=== PATIENT | female | born 1995 | race African-American/Black ===

== ENCOUNTER 2018-09-11 16:08 | Observation (INO) | payer MEDICARE ==
[~2018-09-11] VITALS: Ht 154.9 cm; Wt 59.1 kg
[2018-09-11 17:03] LABS: ALKALINE PHOSPHATASE 94 U/L (46-116); AMYLASE - SERUM 74 U/L (25-115); BILIRUBIN - TOTAL 1.19 mg/dL (0.2-1.3); CALC OSMOLALITY 280 mosm/kg (275-300); CALCIUM 8.7 mg/dL (8.5-10.1); CARBON DIOXIDE 26.1 mmol/L (21.0-32.0); CHLORIDE - SERUM 105 mmol/L (98-107); CREATININE - SERUM 0.9 mg/dL (0.6-1.3); GLUCOSE 141 mg/dL (74-106); LIPASE 59 U/L (73-393); POTASSIUM - SERUM 3.9 mmol/L (3.5-5.1); PROTEIN - SERUM 7.5 g/dL (6.4-8.2); SODIUM 141 mmol/L (136-145); TROPONIN-I < 0.017 ng/mL (0.000-0.060); UREA NITROGEN 7 mg/dL (7-18); eGFR NON AFRICAN AMERICAN 84 mL/min (90-120)
[2018-09-11 17:25] LABS: ALT (SGPT) < 10 U/L (10-68)
[2018-09-11 18:01] LABS: BASOPHILS 0.1 % (0-2); EOSINOPHILS 0.1 % (0-7); HEMATOCRIT 39.2 % (36.0-48.0); HEMOGLOBIN 13.1 g/dL (12-16); IMMATURE GRANULOCYTES 0.2 % (0-5); LYMPHOCYTES 9.7 % (15-50); MCH 30.2 pg (26.0-34.0); MCHC 33.4 g/dL (31.0-37.0); MCV 90.3 fL (80.0-100.0); MEAN PLATELET VOLUME 10.5 fL (7.4-10.4); MONOCYTES 2.6 % (2-11); NEUTROPHILS 87.3 % (40-80); PLATELET COUNT 259 10x3/uL (130-400); RBC 4.34 10x6/uL (4.00-5.40); RDW 12.3 % (11.5-14.5); WBC 12.7 10x3/uL (4.8-10.8)
--- NOTE | 2018-09-11 18:39 | NUR ---
I have reviewed this patient and I concur with the Shift Assessment completed by the Licensed Practical Nurse today this shift.
--- NOTE | 2018-09-11 19:00 | NUR ---
REPORT RECEIVED FROM ER NURSE. PATIENT WILL COME TO THE FLOOR POST-OP. HAVING LAP APPENDECTOMY BY DR. ABIMBOLA CONTI.
--- NOTE | 2018-09-11 19:00 | NUR ---
HAND-OFF REPORT GIVEN TO ED NURSE CARMITA NORMAN. PT WILL GO TO ROOM 2208 FOLLOWING SURGERY. REPORT CALLED TO BASILIO FARR NURSE AT THIS TIME.
[2018-09-12 02:24] VITALS: BP 113/61; Ht 154.9 cm; Wt 59.1 kg
[2018-09-12 04:37] VITALS: BP 115/61
--- NOTE | 2018-09-12 07:45 | NUR ---
PATIENT LAYING IN BED. C/O PAIN. JUST HAD ORAL PAIN MED, WILL GIE A CHANCE TO WORK. FAMILY AT BEDSIDE. ALL NEEDS MET AT THIS TIME.
--- NOTE | 2018-09-12 07:54 | NUR ---
I have reviewed this patient and I concur with the Shift Assessment completed by the Licensed Practical Nurse today this shift.
[2018-09-12] MEDS ORDERED: BACTRIM 400/80 MG TA PO (08:12)
[2018-09-12] MEDS ORDERED: NORCO-10 PO (08:12)
--- NOTE | 2018-09-12 08:13 | OP ---
PATIENT NAME: CHAD LERMA MEDICAL RECORD: [id number] :96 LOCATION:[id number] ADMISSION DATE:09/11/18 SURGEON: THANH DAILY MD DATE OF OPERATION: 09/11/2018 PREOPERATIVE DIAGNOSIS: Acute appendicitis with localized peritonitis. POSTOPERATIVE DIAGNOSIS: Acute appendicitis with localized peritonitis. PROCEDURE: Laparoscopic appendectomy. SURGEON: Thanh Daily MD REPORT OF PROCEDURE: The patient's abdomen was prepped and draped in sterile fashion. A cutdown was made on the superior aspect of the umbilicus. Electrocautery was used to dissect through the subcutaneous tissues to the fascia. This fascia was elevated and sutures were placed bilaterally. The fascia was then incised with a 15-blade and I bluntly entered the peritoneal cavity. A 12-mm Maya port was inserted and the abdomen was insufflated. Under direct visualization, a 5-mm trocar was placed in the left lower quadrant and another was placed in the suprapubic region. We could immediately see a very firm inflamed appendix projecting out of the cecum in the right lower quadrant towards the pelvis. There was no sign of any gangrene or perforation. The base of the appendix was significantly inflamed. The appendix itself was adherent to the inferior aspect and posterior aspect of the abdominal cavity. Using sharp dissection and electrocautery, we were able to dissect the peritoneal attachments until we were able to elevate the base of the cecum and the appendix. The mesoappendix was penetrated and using a 45 white load Endo-ABDOULAYE stapler, we transected this section of tissue. The base of the appendix was then easily visualized extending into the cecum. Using a 45 blue load Endo-ABDOULAYE stapler, we transected the appendix at the cecum. The staple lines were all inspected and there was no sign of any active bleeding. We placed the appendix into an Endo Catch bag. At this point, we irrigated out the right lower quadrant and pelvis and assured there was no sign of any bleeding. The ports and insufflation were then removed. We attempted to pull the appendix out through the umbilicus, but due to the sheer size of it we had to extend the fascial incision. The bag ruptured at one point during this portion of the procedure, so the appendix was taken out bare through the umbilical opening. Once the appendix was out, it was noted to be intact and there was no spillage of any contents. The fascia was then closed with interrupted 0 Vicryls times 3. We irrigated out the wound thoroughly with normal saline. The wounds were infused with a total of 10 mL of 0.25% Marcaine with epinephrine and then closed with subcutaneous 5-0 Monocryl. COMPLICATIONS: None. CONDITION: Stable. ANESTHESIA: General endotracheal and local. BLOOD LOSS: Minimal. TRANSINT:[id number] Voice Confirmation ID: [id number] DOCUMENT ID: [id number] OPERATIVE REPORT [id number] CHAD LERMA CHRISTIAN MD at 0813 CC: [id number] DICTATION DATE: 09/11/182049 CRM FUNCTIONAL ANALYST: 09/11/18 909 ADM IN [place] [id number] [place] [address]
--- NOTE | 2018-09-12 09:04 | NUR ---
PT STATED THAT SHE HAS TAKING THE FLU SHOT FOR THIS YEAR
[2018-09-12 10:39] VITALS: BP 101/50
--- NOTE | 2018-09-12 10:45 | NUR ---
PATIENT UNABLE TO VOID BEFORE DISCHARGING TO COLLECT URINE.
--- NOTE | 2018-09-12 10:50 | NUR ---
DISCUSSED DISCHARGE, MEDICATION AND FOLLOW-UP INSTRUCTIONS WITH PATIENT AND FATHER. CONFIRMED PATIENT PASSING GAS AT TIME OF DISCHARGE. PIV REMOVED, TIP INTACT. ALL BELONGINGS SENT WITH PATIENT. DISCHARGED HOME VIA WHEELCHAIR BY VOLUNTEER STAFF.
== END 2018-09-12 10:50 | disposition home or self-care (01) ==
LOC: D.ER 16:08 → D.MS 18:15 → D.ER 20:45 → D.MS 20:46 → OBSVTIME 20:46 → D.MS 09-12 10:50
PROVIDERS: Family Medicine; ADMIT Surgery; ATTEND Surgery
DX: K35.30 Acute appendicitis with localized peritonitis, without perforation or gangrene (principal); Z72.0 Tobacco use